=== PATIENT | male | born 1945 | race Caucasian/White ===

== ENCOUNTER 2018-11-10 14:57 | Emergency (ER) | payer MEDICARE, BC ==
[2018-11-10 15:14] VITALS: BP 143/89; TEMP 97.8; O2SAT 99
--- NOTE | 2018-11-10 15:18 | ED.PDOC ---
History of Present Illness - General Chief Complaint: Upper Extremity Injury Stated Complaint: right shoulder and arm pain after fall Time Seen by Provider: 11/10/18 15:07 Source: patient Exam Limitations: no limitations - History of Present Illness Initial Comments: Patient presents with right shoulder, arm, and wrist pain after a fall. He lost his balance and fell on the right side but he doesn't know if his shoulder, elbow, or hand hit the ground first. Pain is mostly at the shoulder joint but he says he feels it in his arm and wrist. Throbbing in nature. Constant. Worse with movement, better with rest. He has had multiple previous injuries with the right shoulder. No other injuries nor complaints. No LOC. Timing/Duration: 1-3 hours Severity: moderate Improving Factors: rest Worsening Factors: movement Associated Symptoms: denies symptoms Allergies/Adverse Reactions: Allergies Codeine Allergy (Verified 07/02/15 14:32) Home Medications: Ambulatory Orders Allopurinol [Zyloprim] 300 mg PO DAILY 07/02/15 Furosemide [Lasix] 40 mg PO DAILY 07/02/15 Gabapentin 600 mg PO TID 07/02/15 Gemfibrozil 600 mg PO BID 07/02/15 Glyburide-Metformin [Glyburide/Metformin HCl 5-500 mg] 1 tab PO DAILY 07/02/15 Losartan Potassium 25 mg PO DAILY 07/02/15 Potassium Chloride [Micro-K] 20 meq PO TID 07/02/15 Review of Systems - Review of Systems Constitutional: States: no symptoms reported EENTM: States: no symptoms reported Respiratory: States: no symptoms reported Cardiology: States: no symptoms reported Gastrointestinal/Abdominal: States: no symptoms reported Genitourinary: States: no symptoms reported Musculoskeletal: States: see HPI Skin: States: no symptoms reported Neurological: States: no symptoms reported Endocrine: States: see HPI Hematologic/Lymphatic: States: no symptoms reported Past Medical History (General) - Patient Medical History Hx of COPD: Yes Hx Congestive Heart Failure: No Hx Hypertension: Yes Hx Diabetes: Yes Hx Cancer: No Hx Hepatitis C: No Surgical History: appendectomy - Vaccination History Hx Tetanus, Diphtheria Vaccination: No Hx Influenza Vaccination: No Hx Pneumococcal Vaccination: No Immunizations Up to Date: No - Social History Hx Alcohol Use: No Hx Substance Use: No Hx Substance Use Treatment: No Hx Depression: No Family Medical History - Family History Mother Family History: Unknown Living Status: Physical Exam - Physical Exam General Appearance: Alert Respiratory: lungs clear, normal breath sounds Cardiovascular/Chest: normal peripheral pulses, regular rate, rhythm Gastrointestinal/Abdominal: normal bowel sounds, non tender, soft Extremity: other - Patient is unable to elevate the right arm to horizontal. He stops at about 20 degrees below horizontal. Shoulder is NTTP. 5/5 strength to flexion/extension/adduction/abduction of the wrist and fingers of the right hand. 5/5 strength to opposition of the right thumb. Neurologic: no motor/sensory deficits, alert, normal mood/affect, oriented x 3 Progress - Progress Progress: 11/10/18 15:57 Radiographs of the right shoulder, humerus, elbow, forearm, wrist, and hand showed no dislocations nor fractures. Patient was given Toradol 30 mg IM x one and fitted with a right arm sling. He has an appointment with his pcp next week and he will inquire about a possible MRI. He declined an RX for Tylenol #3. Care instructions given. E.R. warnings given. Questions were elicited and answered. Patient voiced understanding and agreement with the plan. Departure - Departure Clinical Impression: Rotator cuff (capsule) sprain Disposition: Discharge to Home or Self Care Condition: Good Departure Forms: ED Discharge - Pt. Copy, Patient Portal Self Enrollment Instructions: DI for Arm Pain, Rotator Cuff Injury (DC) Diet: diabetic diet Activity: other - Rest the right shoulder and arm for two weeks. Referrals: AZALEA GERONIMO [Primary Care Provider] - 1-2 Weeks Home Medications: Ambulatory Orders Allopurinol [Zyloprim] 300 mg PO DAILY 07/02/15 Furosemide [Lasix] 40 mg PO DAILY 07/02/15 Gabapentin 600 mg PO TID 07/02/15 Gemfibrozil 600 mg PO BID 07/02/15 Glyburide-Metformin [Glyburide/Metformin HCl 5-500 mg] 1 tab PO DAILY 07/02/15 Losartan Potassium 25 mg PO DAILY 07/02/15 Potassium Chloride [Micro-K] 20 meq PO TID 07/02/15 Additional Instructions: See Dr. Geronimo next week as you are already scheduled and ask about an MRI if needed. Return to the E.R. for worsening pain or new symptoms.
--- NOTE | 2018-11-10 15:41 | RAD ---
EXAM DESCRIPTION: Forearm,Right CLINICAL HISTORY: 73 years Male, pain after fall COMPARISON: None. TECHNIQUE: 2 views of the right forearm. FINDINGS: No acute fracture or dislocation. The proximal and distal radioulnar joints appear intact. The overlying soft tissues appear grossly unremarkable. IMPRESSION: 1. No acute fracture or dislocation. Electronically signed by: Josue Lomas MD 11/10/2018 3:38 PM [facility] [[email or web address]]
--- NOTE | 2018-11-10 15:43 | RAD ---
EXAM DESCRIPTION: Hand,Right 3 Views CLINICAL HISTORY: pain after fall COMPARISON: None Available. TECHNIQUE: AP, LATERAL, AND OBLIQUE RADIOGRAPHS OF THE RIGHT HAND. FINDINGS: Mild diffuse osteopenia of the visualized bones noted. No acute fracture or dislocation. Moderate degenerative changes are noted at the first of carpometacarpal joint. The overlying soft tissues appear grossly unremarkable. IMPRESSION: 1. No acute fracture or dislocation. Electronically signed by: Josue Lomas MD 11/10/2018 3:40 PM [facility]
--- NOTE | 2018-11-10 15:44 | RAD ---
EXAM DESCRIPTION: Humerus,Right CLINICAL HISTORY: 73 years Male, pain after fall COMPARISON: None. TECHNIQUE: 2 views of the right humerus. FINDINGS: No acute fracture or dislocation. The glenohumeral and elbow joint appears intact. The overlying soft tissues appear grossly unremarkable. Mild degenerative changes of the right acromioclavicular joint noted. IMPRESSION: 1. No acute fracture or dislocation. Electronically signed by: Josue Lomas MD 11/10/2018 3:41 PM [facility]
--- NOTE | 2018-11-10 15:49 | RAD ---
EXAM DESCRIPTION: Shoulder,Right 2 or More Views CLINICAL HISTORY: 73 years Male, pain after fall COMPARISON: None available. Technique: 2 views of the right shoulder joint. FINDINGS: Mild diffuse osteopenia of the visualized bones noted. No acute fracture or dislocation. The glenohumeral joint is intact. The overlying soft tissues appear grossly unremarkable. Mild right AC joint osteoarthritic changes seen. Focal right hilar airspace opacity could represent a calcified hilar node, however malignancy cannot be completely excluded. IMPRESSION: 1. No acute fracture or dislocation. 2. Partially visualized right hemithorax demonstrates a hilar airspace opacity which could represent a calcified hilar node, however underlying malignancy cannot be completely excluded. A CT of the chest is recommended for further evaluation. Electronically signed by: Josue Lomas MD 11/10/2018 3:46 PM [facility]
--- NOTE | 2018-11-10 15:50 | RAD ---
EXAM DESCRIPTION: Wrist,Right 2 Views CLINICAL HISTORY: 73 years Male, pain after fall COMPARISON: None. FINDINGS: Mild diffuse osteopenia of the visualized bones noted. No acute fracture or dislocation. The distal radioulnar joint appears intact. The carpal arcs are well-maintained. The overlying soft tissues appear grossly unremarkable. IMPRESSION: 1. No acute fracture or dislocation. Electronically signed by: Josue Lomas MD 11/10/2018 3:47 PM [facility]
[2018-11-10] MEDS ORDERED: KETOROLAC TROMETHAMINE INJ 30 MG/ML VIAL IM ONE (15:59)
== END 2018-11-10 16:11 | disposition home or self-care (01) ==
LOC: ER 14:57
DX: S43.421A Sprain of right rotator cuff capsule, initial encounter (principal); M25.521 Pain in right elbow; M25.531 Pain in right wrist; M79.631 Pain in right forearm; J44.9 Chronic obstructive pulmonary disease, unspecified; E11.9 Type 2 diabetes mellitus without complications; I10 Essential (primary) hypertension; W18.39XA Other fall on same level, initial encounter; Z88.5 Allergy status to narcotic agent; Z79.899 Other long term (current) drug therapy
CPT/HCPCS: 73030; 73060; 73090; 73100; 73130; J1885